=== PATIENT | male | born 1955 | race Caucasian/White ===

== ENCOUNTER → 2018-01-01 | Outpatient (CLI) | payer OTHER ==
[~2018-01-01] MED LIST: ACET500T68 PO; AMOX-362 PO; ATOR20TA22 PO; CEPH500T7 PO; CLIN-1 PO; CYCL10TA29 PO; DOCU-416 PO; DON PO; FENO43CA PO; HYDR-385 PO; HYDR-4309 PO; HYDR-6045 RC; IBUP800T37 PO; KET10 PO; LISI-349 PO; LOP2 PO; LOR5 PO; LOR5/325 PO; NO ROUTINE MEDS; OLME1TAB57 PO; PEN250 PO; PENI-22 PO; PENI-24 PO; PER PO; PRAV20TA65 PO; PREVPACPT PO; PROM-110 PO; SUC1 PO
[2018-01-01 16:01] LABS: PLATELET COUNT, AUTOMATED 203 K/uL (150-450)
[2018-01-01 16:11] LABS: LDL CHOLESTEROL 24 mg/dl
== END ==
LOC: LAB 15:39
PROVIDERS: ATTEND Emergency Medicine
DX: I10 Essential (primary) hypertension (principal)
CPT/HCPCS: 36415; 82040; 82247; 82306; 82310; 82374; 82435; 82465; 82565; 82947; 83718; 84075; 84132; 84155; 84295; 84443; 84450; 84460; 84478; 84520; 85025

== ENCOUNTER → 2018-01-08 | Outpatient (CLI) | payer OTHER | LOC: RESP 01:40 | PROVIDERS: ATTEND Emergency Medicine | DX: I10 Essential (primary) hypertension (principal) | CPT/HCPCS: 94060; 94726; 94729 ==

== ENCOUNTER → 2018-02-19 | Outpatient (CLI) | payer OTHER ==
[~2018-02-19] MED LIST changes: +CHOL500016 PO; +TIO18R INH
== END ==
LOC: RESP 04:09
PROVIDERS: ATTEND Emergency Medicine
DX: G47.33 Obstructive sleep apnea (adult) (pediatric) (principal)

== ENCOUNTER → 2018-04-16 | Outpatient (CLI) | payer OTHER ==
[~2018-04-16] MED LIST changes: +CHOL200074 PO
== END ==
LOC: LAB 16:26
PROVIDERS: ATTEND Emergency Medicine
DX: E55.9 Vitamin D deficiency, unspecified (principal)
CPT/HCPCS: 36415; 82306

== ENCOUNTER → 2018-05-31 | Outpatient (CLI) | payer OTHER ==
[~2018-05-31] MED LIST changes: +ALBU8.5H IH; +IPRA3AMP10 IH; +METH4TAB66 PO; +PENI1200 IM
== END ==
LOC: LAB 08:20
PROVIDERS: ATTEND Emergency Medicine
DX: J98.4 Other disorders of lung (principal)
CPT/HCPCS: 36415; 83880

== ENCOUNTER → 2018-06-06 | Outpatient (CLI) | payer OTHER ==
--- NOTE | 2018-06-06 15:37 | RADIOLOGY IMAGING REPORT ---
FACILITY: [facility] - [place] PATIENT NAME: Mario Rausch : 1955 MR: [id number] V: [id number] EXAM DATE: ORDERING PHYSICIAN: ALIA ACOSTA TECHNOLOGIST: Location: [facility] [place] Patient: Mario Rausch : 1955 Visit/Account:[id number] Date of Sevice: 06/06/2018 WRIST LEFT 2 VIEW INDICATION: Pain COMPARISON: None available FINDINGS: Frontal and lateral views obtained. Irregularity and sclerosis within the scaphoid bone seen on frontal view. Punctate dense focus projecting over the potential second digit region soft tissues not well characte rized on this dedicated wrist radiograph series. Otherwise normal osseous structures, joint spaces and soft tissues. IMPRESSION: 1. Irregularity and sclerosis of the scaphoid bone may represent a subacute to chronic scaphoid frac ture. Recommend dedicated scaphoid radiograph for further characterization. 2. Punctate dense focus/potential foreign body projecting over the potential second digit region sof t tissues not well characterized on this dedicated wrist radiograph series. Report Dictated By: Ian Parekh MD at 06/06/2018 3:28 PM Report E-Signed By: Ian Parekh MD at 06/06/2018 3:32 PM WSN:[id number]
== END ==
LOC: RAD 14:29
PROVIDERS: ATTEND Emergency Medicine
DX: R93.7 Abnormal findings on diagnostic imaging of other parts of musculoskeletal system (principal)

== ENCOUNTER → 2018-06-07 | Outpatient (CLI) | payer OTHER ==
--- NOTE | 2018-06-07 13:53 | RADIOLOGY IMAGING REPORT ---
FACILITY: [facility] PATIENT NAME: Mario Rausch : 1955 MR: [id number] V: [id number] EXAM DATE: ORDERING PHYSICIAN: ALIA ACOSTA TECHNOLOGIST: [place] [facility] [place] Raus[place] : 1955 Visit/Account:[id number] Date of Sevice: 06/07/2018 Technique: WRIST LEFT MIN 3 VIEW HISTORY: Pain Comparison studies: Left wrist radiographs June 06, 2018 FINDINGS: A chronic appearing, ununited scaphoid fracture through the mid body is noted with sclerosi s of the distal fracture fragment. There is also radiocarpal joint space narrowing. Previously note d foreign body is not included on the [id number]. IMPRESSION: 1. Chronic appearing, ununited scaphoid fracture as described above. Report Dictated By: Mitul Tejada DO at 06/07/2018 1:35 PM Report E-Signed By: Mitul Tejada DO at 06/07/2018 1:50 PM WSN:[email or web address]
== END ==
LOC: RAD 12:57
PROVIDERS: ATTEND Emergency Medicine
DX: S62.015 Nondisplaced fracture of distal pole of navicular [scaphoid] bone of left wrist (principal)

== ENCOUNTER → 2018-06-26 | Outpatient (CLI) | payer OTHER ==
--- NOTE | 2018-06-26 10:33 | RADIOLOGY IMAGING REPORT ---
FACILITY: [facility] - [place] PATIENT NAME: Mario Rausch : 1955 MR: [id number] V: [id number] EXAM DATE: ORDERING PHYSICIAN: DYLON CUNNINGHAM TECHNOLOGIST: Location: [facility] - [place] Patient: Mario Rausch : 1955 Visit/Account:[id number] Date of Sevice: 06/26/2018 FOOT 3 VIEW LEFT History: Left foot pain. Comparison study: None. Findings: There is diffuse osteopenia but no fracture involving the metatarsals or phalanges. There has been prior ORIF of a distal left fibular fracture. There is enthesopathic change at the site of attachment of the Achilles tendon and plantar aponeurosi s upon the calcaneus. IMPRESSION: 1. Osteopenia without fracture. 2. Status post fibular surgery. 3. Enthesopathic changes as described above. Report Dictated By: Rich Aldana MD at 06/26/2018 10:26 AM Report E-Signed By: Rich Aldana MD at 06/26/2018 10:29 AM WSN:[email or web address]
== END ==
LOC: RAD 09:43
PROVIDERS: ATTEND Nurse Practitioner Primary Care
DX: M85.80 Other specified disorders of bone density and structure, unspecified site (principal); Z87.81 Personal history of (healed) traumatic fracture

== ENCOUNTER → 2018-06-28 | Outpatient (CLI) | payer OTHER ==
--- NOTE | 2018-06-28 12:21 | RADIOLOGY IMAGING REPORT ---
FACILITY: [facility] [place] PATIENT NAME: Mario Rausch : 1955 MR: [id number] V: [id number] EXAM DATE: ORDERING PHYSICIAN: ALIA ACOSTA TECHNOLOGIST: Location: [facility] - [place] Patient: Mario Rausch : 1955 Visit/Account:[id number] Date of Sevice: 06/28/2018 DEXA Scan Clinical history: Osteopenia. Comparison: None available. LUMBAR SPINE: The bone mineral density (BMD) measured from L1-L4 correlates with a Z-score -1.8 and a T-score of -1 .4 which is osteopenia as defined by the World Health Organization. The corresponding risk of fractu re in the lumbar spine is 2-3 times increased compared with a young adult reference population. HIP: Bone mineral density (BMD) measured in the Left total hip region correlates with a Z-score -0.2 and a T-score of -0.3 which is Normal as defined by the World Health Organization. The corresponding risk of fracture in the hip is Not increased compared with a young adult reference population. T score left femoral neck -0.6 Bone mineral density (BMD) measured in the Femoral Neck region measures 0.988 g/cm2. Impression: 1. Lumbar spine: Osteopenia. 2. Left Hip: Normal. 3. Femoral Neck: Bone Mineral Density is 0.988 g/cm2 The next DEXA scan of this patient should include the following sites: L1-L4 and the left hip. FRAX? WHO Fracture Risk Assessment Tool link: <http://www.shef.ac.uk/FRAX/tool.jsp?locationValue=9> PLEASE NOTE: 1) The World Health Organization defines low BMD as follows: T-score Normal > -1 Osteopenia < -1 and > -2.5 Osteoporosis < -2.5 without fractures Established osteoporosis < -2.5 with fractures 2) In general, you may wish to consider: Diagnosis Treatment Follow-up DEXA Normal BMD Prevention 2-3 years Osteopenia Prevention/therapy 1-2 years Osteoporosis Therapy Yearly 3) Fracture risk estimated from the T-score is more accurate for vertebral fractures (often spontane ous) than for hip fractures. Report Dictated By: Rosa Jeffrey MD at 06/28/2018 12:16 PM Report E-Signed By: Rosa Jeffrey MD at 06/28/2018 12:17 PM WSN:[email or web address]
== END ==
LOC: RAD 00:52
PROVIDERS: ATTEND Emergency Medicine
DX: M85.80 Other specified disorders of bone density and structure, unspecified site (principal)
CPT/HCPCS: 77080

== ENCOUNTER → 2018-07-12 | Outpatient (CLI) | payer OTHER ==
[~2018-07-12] MED LIST changes: +FLU60VIA41 IM
== END ==
LOC: LAB 08:03
PROVIDERS: ATTEND Emergency Medicine
DX: M85.80 Other specified disorders of bone density and structure, unspecified site (principal)
CPT/HCPCS: 36415; 82310; 83970; 84402; 84403

== ENCOUNTER 2018-08-22 08:15 | Outpatient (RCR) | payer OTHER ==
--- NOTE | 2018-06-08 17:35 | PT INITIAL EVALUATION ---
MEDICAL DIAGNOSIS: Bilateral Shoulder Pain, Right Knee Andres TREATMENT DIAGNOSIS: Neck pain with Radiating, Right Patellofemoral Syndrome, LE Weakness, DATE OF ONSET: 06/08/18 SUBJECTIVE: Mario is a 63 year-old male presenting to physical therapy following recent onset of B shoulder pain as well as with a chronic history of R knee pain. Pt reports that the shoulder pain started more than a week ago without any cause. Pain shoots down both arms and is currently located to the level of the mid upper arm rated as a 2/10 in intensity. Pain is increased with shoulder movement and with sleeping reaching up to a 8-9/10 at worst shooting down into the fingers and wrist occasionally leaving fingers numb. R knee pain has been present since arthroscopic surgery in 2014 and is a general ache that pt reports has "never been the same" since the surgery. Pt reports that pain is currently located just above the knee in the quadriceps region rated as 3-4/10. Pain increases to 10/10 at worst after a long day of standing or walking at the end of a shift of work. 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 REHAB PROBLEM LIST: Increased Pain Decreased ROM Decreased Strength Decreased Endurance Decreased Function Decreased ADL's Decreased Mobility PREVIOUS MEDICAL HISTORY: See EMR OCCUPATION: Cook at OBJECTIVE: Posture: Posture significant for forward head with increased flexion in all movements. ROM: Cervical ROM: Flexion: full no pain, ext: minimally restricted with lateral neck pain L>R, L SB: 35 degrees with L side pn, R SB: 40 degrees with R side pn, B rotation: 60 degrees with pn on L with L rot. Strength: LE MMT: Hip: Flexion: B 4/5 with pn with R, Ext: B 4/5, add: R 4/5 lateral knee pain, L 5/5, abd: B 4/5. Knee: Flex: R 4/5, L 4+/5, ext: R 4-/5, L 5/5. Medial quad activation 6/10 repetitions Special Tests: All ligamentous testing of the knee (-) except slight ACL laxity on R. Mobility: Brian Cervical Screen: Repeated motion: flex: pain to B wrists and R thumb, ext: pain centralized to shoulders only and then to R neck only and L shoulder, retraction: no change ASSESSMENT: Mario shows signs and symptoms consistent with right patellofemoral syndrome secondary to LE weakness as well as cervical dysfunction with B UE radiating pain. Physical therapy is indicated for this patient to address the above listed deficits to improve pt function with ADL's and occupational activities. Short Term Goals In 3 weeks pt will centralize neck pain to the cervical region only without radiation for increased UE function with ADL's. In 6 weeks pt will have no neck pain or arm pain for improved function with ADL's. In 6 weeks pt will increase R knee extension to 4+/5 for improved function with ADL's. In 6 weeks pt will have increased medial quad activation to 10/10 contractions with quad sets for improved patellar tracking for increased function with ADL's. Patient's Goals Decrease shoulder and arm pain, decrease L knee pain PLAN: Patient to be seen for Manual Therapy/STM/MET Strengthening/condition Ice/Heat Range of Motion Spinal Stabilization Ultrasound Stretching Iontophoresis Neuromuscular Re-ed Closed Chain Program Electrical Stim Posture/Body mechanics Gait Trg/Balance Trg Biofeedback Home Exercise Program Mech./Manual Traction Therapeutic Activities 2-3x/Week for 6 Weeks If you have any questions, comments, or concerns about this report or plan, please contact me at . Thank you, Tamara Celis, PT, DPT, CLT YOAN
--- NOTE | 2018-07-02 16:18 | PT PLAN OF CARE ---
Physician: Cielo Joe MD Patient is being seen: 2-3x/Week Therapist: Tamara Celis, PT, DPT, CLT Medical Diagnosis: Bilateral Shoulder Pain, Right Knee Andres Treatment Diagnosis: Neck pain with Radiating, Right Patellofemoral Syndrome, LE Weakness, Date of Onset: 06/08/18 Date of Initial Evaluation: 06/08/18 Date patient was last seen: 07/02/18 Number of treatments: 10 Number of cancellations/No shows: 0 INTERVENTIONS: Manual Therapy/STM/MET Strengthening/condition Ice/Heat Range of Motion Spinal Stabilization Ultrasound Stretching Iontophoresis Neuromuscular Re-ed Closed Chain Program Electrical Stim Posture/Body mechanics Gait Trg/Balance Trg Biofeedback Home Exercise Program Mech./Manual Traction Therapeutic Activities GOALS: In 3 weeks pt will centralize neck pain to the cervical region only without radiation for increased UE function with ADL's. MET In 6 weeks pt will have no neck pain or arm pain for improved function with ADL's. MET In 6 weeks pt will increase R knee extension to 4+/5 for improved function with ADL's. In Progress In 6 weeks pt will have increased medial quad activation to 10/10 contractions with quad sets for improved patellar tracking for increased function with ADL's. MET PATIENT'S GOAL: Decrease shoulder and arm pain, decrease L knee pain Status of Patient's Goals: 3/4 MET Patient Compliance: Good Prognosis: Good Reasons for continuing therapy: Mario shows good progress with LE strengthening and abolishment of B shoulder pain from radiation from the neck. Pt continues to show slight scapular elevation with exercises and requires verbal cuing for postural adjustments. Pt knee pain is significantly reduced with symptoms only coming on now at the end of a shift following prolonged standing. Pt recently developed L metatarsalgia on the 5th met which shows improvements with treatment but has created an abnormal gait pattern resulting in increased R LE dependence and occasional fatigue. Further PT to continue with gains in LE strength and stability for occupational demands as well as recovery from recent injury, and maintaining cervical and scapular posture. Posture: Slight forward head posture remaining ROM: Cervical ROM: Flexion: full no pain, ext: minimally restricted no pain, L SB: 35 degrees, R SB: 40 degrees, B rotation: 60 degrees. Strength: LE MMT: Hip: Flexion: B 4/5 with pn with R, Ext: B 4+/5, add: R 5/5, L 5/5, abd: B 4+/5. Knee: Flex: B 5/5, ext: R 4/5, L 5/5. Medial quad activation 10/10 repetitions Special Tests: All ligamentous testing of the knee (-) except slight ACL laxity on R. Mobility: Brian Cervical Screen: Repeated motion: flex: pain to B wrists and R thumb, ext: pain centralized to shoulders only and then to R neck only and L shoulder, retraction: no change If you have any questions or concerns, please feel free to contact me at [phone]. Thank you, Tamara Celis, PT, DPT, CLT MTDD
--- NOTE | 2018-08-01 09:20 | PT PLAN OF CARE ---
Physician: Cielo Joe MD Patient is being seen: 2-3x/Week Therapist: Tamara Celis, PT, DPT, CLT Medical Diagnosis: Bilateral Shoulder Pain, Right Knee Andres Treatment Diagnosis: Neck pain with Radiating, Right Patellofemoral Syndrome, LE Weakness, Date of Onset: 06/08/18 Date of Initial Evaluation: 06/08/18 Date patient was last seen: 08/01/18 Number of treatments: 20 Number of cancellations/No shows: 0 INTERVENTIONS: Manual Therapy/STM/MET Strengthening/condition Ice/Heat Range of Motion Spinal Stabilization Ultrasound Stretching Iontophoresis Neuromuscular Re-ed Closed Chain Program Electrical Stim Posture/Body mechanics Gait Trg/Balance Trg Biofeedback Home Exercise Program Mech./Manual Traction Therapeutic Activities GOALS: In 3 weeks pt will centralize neck pain to the cervical region only without radiation for increased UE function with ADL's. MET In 6 weeks pt will have no neck pain or arm pain for improved function with ADL's. MET In 6 weeks pt will increase R knee extension to 4+/5 for improved function with ADL's. In Progress In 6 weeks pt will have increased medial quad activation to 10/10 contractions with quad sets for improved patellar tracking for increased function with ADL's. MET PATIENT'S GOAL: Decrease shoulder and arm pain, decrease L knee pain Status of Patient's Goals: 3/4 MET Patient Compliance: Good Prognosis: Good Reasons for continuing therapy: Mario continues to show good progress with cervical mobility and function with pain completely eliminated. Pt shows progress with LE strengthening with improved hip and knee mechanics. Progress was temporarily slowed by onset of ankle injury, but now bilateral ankles, knees and hips show improving strength and stability. Further PT to continue with knee strength and posture with ADL's such as stair ambulation for progress towards functional goals. Posture: Slight forward head posture remaining ROM: Cervical ROM: Full in all motions without pain. Strength: LE MMT: Hip: Flexion: R 4+/5, L 4/5, Ext: B 4+/5, add: R 5/5, L 5/5, abd: B 5/5. Knee: Flex: B 5/5, ext: R 4/5, L 5/5. Medial quad activation 10/10 repetitions Special Tests: All ligamentous testing of the knee (-) except slight ACL laxity on R. If you have any questions or concerns, please feel free to contact me at [phone]. Thank you, Tamara Celis, PT, DPT, CLT BARROND
[~2018-08-22 08:15] MED LIST changes: -HYDR-4309 PO; +HYDR-653 PO
--- NOTE | 2018-08-22 09:12 | PT PLAN OF CARE ---
Physician: Cielo Joe MD Patient is being seen: 2x/Week Therapist: Tamara Celis, PT, DPT, CLT Medical Diagnosis: Bilateral Shoulder Pain, Right Knee Andres Treatment Diagnosis: Neck pain with Radiating, Right Patellofemoral Syndrome, LE Weakness, Date of Onset: 06/08/18 Date of Initial Evaluation: 06/08/18 Date patient was last seen: 08/22/18 Number of treatments: 29 Number of cancellations/No shows: 0 INTERVENTIONS: Manual Therapy/STM/MET Strengthening/condition Ice/Heat Range of Motion Spinal Stabilization Ultrasound Stretching Iontophoresis Neuromuscular Re-ed Closed Chain Program Electrical Stim Posture/Body mechanics Gait Trg/Balance Trg Biofeedback Home Exercise Program Mech./Manual Traction Therapeutic Activities GOALS: In 3 weeks pt will centralize neck pain to the cervical region only without radiation for increased UE function with ADL's. MET In 6 weeks pt will have no neck pain or arm pain for improved function with ADL's. MET In 6 weeks pt will increase R knee extension to 4+/5 for improved function with ADL's. MET In 6 weeks pt will have increased medial quad activation to 10/10 contractions with quad sets for improved patellar tracking for increased function with ADL's. MET PATIENT'S GOAL: Decrease shoulder and arm pain, decrease L knee pain Status of Patient's Goals: 4/4 MET Patient Compliance: Good Prognosis: Good Reasons for discharge from therapy: Mario is to discharge from physical therapy at this time secondary to completion of 4/4 functional goals. Pt shows great progress with LE strengthening and endurance with decreased fatigue throughout the day with ADL's and occupational activities. Pt shows full resolution of all cervical pain with good compliance with HEP. Upon discharge pt was issued a home program to continue with gains in strength and endurance to maintain pain status. If any further symptoms arise pt is to seek further treatment. Posture: Slight forward head posture remaining ROM: Cervical ROM: Full in all motions without pain. Strength: LE MMT: Hip: Flexion: R 5/5, L 5/5, Ext: B 5/5, add: R 5/5, L 5/5, abd: B 5/5. Knee: Flex: B 5/5, ext: R 5/5, L 5/5, Ankle: PF: B 4/5, DF: B 5/5 Medial quad activation 10/10 repetitions If you have any questions or concerns, please feel free to contact me at [phone]. Thank you, Tamara Celis, PT, DPT, CLT YOAN
== END 2018-08-22 16:11 | disposition home or self-care (01) ==
LOC: PT 08:15
PROVIDERS: ATTEND Emergency Medicine
DX: M25.512 Pain in left shoulder (principal); M25.511 Pain in right shoulder; M25.561 Pain in right knee; M54.2 Cervicalgia; M62.81 Muscle weakness (generalized); M22.2X1 Patellofemoral disorders, right knee
CPT/HCPCS: 97162

== ENCOUNTER → 2018-11-05 | Outpatient (CLI) | payer OTHER ==
[~2018-11-05] MED LIST changes: +GADOBENATE 529MG/1ML 15ML VIAL IVP ONE
--- NOTE | 2018-11-05 10:27 | RADIOLOGY IMAGING REPORT ---
[facility] PATIENT NAME: Mario Rausch : 1955 MR: [id number] V: [id number] EXAM DATE: ORDERING PHYSICIAN: ALIA ACOSTA TECHNOLOGIST: Location: [facility] [place] Patient: Mario Rausch : 1955 Visit/Account:[id number] Date of Sevice: 11/05/2018 Study: XR ORBITS Indication: MRI screening Comparison study: None Findings: A single view of the orbits demonstrates no evidence of metallic foreign body. No significant bony abnormality is identified. IMPRESSION: No evidence of metallic foreign body overlying the orbits. Report Dictated By: Ford Little at 11/05/2018 10:21 AM Report E-Signed By: Ford Little at 11/05/2018 10:21 AM WSN:[id number]
--- NOTE | 2018-11-05 11:36 | RADIOLOGY IMAGING REPORT ---
FACILITY: [facility] - [place] PATIENT NAME: Mario Rausch : 1955 MR: [id number] V: [id number] EXAM DATE: ORDERING PHYSICIAN: ALIA ACOSTA TECHNOLOGIST: Location: [facility] Patient: Mario Rausch : 1955 Visit/Account:[id number] Date of Sevice: 11/05/2018 MR BRAIN/BRAIN STEM W/ & W/O CON Comparisons: Head CT scan dated February 20, 2017 Additional pertinent history: Follow-up arachnoid cyst TECHNIQUE: Multiplanar, multisequence brain MRI was performed with and without gadolinium contrast. CONTRAST: 15 ml of MultiHance. FINDINGS: Sagittal midline structures and craniocervical junction: Negative. Midline shift: None. Ventricles: Negative. Brain parenchyma: Diffusion weighted imaging: Negative. Gradient sequence: Negative. T2 weighted FLAIR images: Negative. Extra-axial spaces: Continued well-circumscribed uniform CSF signal intensity lesion along the medial aspects of both cerebellar hemispheres again consistent with an underlying arachnoid cyst. This find ing is stable from previous head CT. Dural venous sinuses and major arterial flow voids: Negative. Intracranial enhancement: Negative.. Mastoid air cells and paranasal sinuses: Negative. Surrounding soft tissues and orbits: Negative. Impression: 1. Continued findings of an arachnoid cyst overlying the posterior medial aspects of both cerebellar hemispheres. 2. No acute intracranial pathology. Report Dictated By: Manas Rivera MD at 11/05/2018 11:25 AM Report E-Signed By: Manas Rivera MD at 11/05/2018 11:30 AM WSN:[email or web address]
== END ==
LOC: MRI 01:48
PROVIDERS: ATTEND Emergency Medicine
DX: Z01.818 Encounter for other preprocedural examination (principal); G93.0 Cerebral cysts
CPT/HCPCS: 70030; 70553; A9577

== ENCOUNTER → 2019-04-08 | Outpatient (CLI) | payer OTHER ==
[~2019-04-08] MED LIST changes: -GADOBENATE 529MG/1ML 15ML VIAL IVP ONE
[2019-04-08 10:58] LABS: PLATELET COUNT, AUTOMATED 192 K/uL (150-450)
[2019-04-08 11:18] LABS: LDL CHOLESTEROL 43 mg/dl
== END ==
LOC: LAB 10:15
PROVIDERS: ATTEND Emergency Medicine
DX: G93.0 Cerebral cysts (principal); I10 Essential (primary) hypertension; E78.5 Hyperlipidemia, unspecified; G47.30 Sleep apnea, unspecified; E55.9 Vitamin D deficiency, unspecified; M85.80 Other specified disorders of bone density and structure, unspecified site
CPT/HCPCS: 36415; 82040; 82247; 82306; 82310; 82374; 82435; 82465; 82565; 82607; 82947; 83718; 84075; 84132; 84155; 84295; 84443; 84450; 84460; 84478; 84520; 85025

== ENCOUNTER → 2019-05-01 | Outpatient (CLI) | payer OTHER ==
[~2019-05-01] MED LIST changes: +CYAN500T54 PO
--- NOTE | 2019-05-01 15:56 | EKG ---
FACILITY: [facility] - [place] PATIENT NAME: ARLIN QUINONES : [id number] MR: [id number] V: [id number] EXAM DATE: ORDERING PHYSICIAN: SARTHAK PLEITEZ TECHNOLOGIST: Test Reason : Pre-op Blood Pressure : / mmHG Vent. Rate : 067 BPM Atrial Rate : 067 BPM P-R Int : 162 ms QRS Dur : 112 ms QT Int : 390 ms P-R-T Axes : 041 067 039 degrees QTc Int : 412 ms Sinus rhythm Nonspecific interventricular conduction delay Nonspecific T wave abnormality Abnormal ECG When compared with ECG of 04-JUL-2016 11:22, No significant change was found Confirmed by NIKITA FORBES ([id number]) on 05/01/2019 5:09:45 PM Referred By: Confirmed By:NIKITA FORBES
--- NOTE | 2019-05-01 15:58 | RADIOLOGY IMAGING REPORT ---
FACILITY: [facility] - [place] PATIENT NAME: Mario Rausch : 1955 MR: [id number] V: [id number] EXAM DATE: ORDERING PHYSICIAN: SARTHAK PLEITEZ TECHNOLOGIST: Location: [facility] - [place] Patient: Mario Rausch : 1955 Visit/Account:[id number] Date of Sevice: 05/01/2019 Exam type: CHEST PA LAT History: COPD, preop clearance Comparison: February 20, 2017. Findings: There is mild central peribronchial thickening noted bilaterally. No evidence of acute appearing inf iltrates, pleural effusions or pulmonary edema. The cardiac silhouette is normal in size. There are moderate spondylotic changes of the thoracic spine IMPRESSION: 1. Mild chronic peribronchial thickening although no evidence of acute pulmonary consolidation Report Dictated By: Rosa Jeffrey MD at 05/01/2019 3:49 PM Report E-Signed By: Rosa Jeffrey MD at 05/01/2019 3:50 PM WSN:[email or web address]
== END ==
LOC: LAB 15:20
PROVIDERS: ATTEND Emergency Medicine
DX: J44.9 Chronic obstructive pulmonary disease, unspecified (principal); R91.8 Other nonspecific abnormal finding of lung field
CPT/HCPCS: 71046; 93005

== ENCOUNTER 2019-05-10 00:25 | Day surgery (SDC) | payer OTHER ==
[~2019-05-10] VITALS: Ht 177.8 cm; Wt 109.3 kg
[2019-05-10 09:20] VITALS: BP 136/91
[2019-05-10] MEDS ORDERED: NORMOSOL R SOLN(*) 1000 ML BAG 1,000 ML IV PRN (09:45)
[2019-05-10] MEDS ORDERED: LIDOCAINE/SOD BICARB 8.4% SYR ID ONE (09:45)
[2019-05-10] MEDS ORDERED: PROPOFOL EMUL(*) 10MG/ML 20 ML 40 ML ONE (10:15)
[2019-05-10] MEDS ORDERED: LIDOCAINE MPF 1% 5 ML VIAL ONE (10:15)
[2019-05-10 10:45] VITALS: BP 127/80
[2019-05-10 11:00] VITALS: BP 130/90
--- NOTE | 2019-05-10 11:02 | Short(Outpt) Discharge Summary ---
Discharge Summary Reason for Hosp/Final Diag: (1) Positive colorectal cancer screening using Cologuard test Hospital Course & Plan: pt presented for colonoscopy. he tolerated the procedure well and will be discharged home when criteria met. Departure Discharge to: Home Discharge Instructions Home Meds Active Scripts Cyanocobalamin (Vitamin B-12) (B-12) 500 Mcg Tablet, 500 MCG PO DAILY, #90 TAB 3 Refills Prov:ALIA ACOSTA MD 04/25/19 Albuterol Sulfate 90 Mcg/Act (PROAIR HFA 90 MCG/ACT) 8.5 Gm Hfa.aer.ad, 2 PUFF IH Q4-6H, #1 INHALER 3 Refills Prov:ALIA ACOSTA MD 04/25/19 Tiotropium [place] (SPIRIVA) 18 Mcg/Cap Inh, 18 MCG INH DAILY, #3 INH 3 Refills Prov:ALIA ACOSTA MD 10/26/18 Atorvastatin Calcium (LIPITOR) 20 Mg Tablet, 1 TAB PO QDAY, #90 TAB 3 Refills Prov:ALIA ACOSTA MD 10/26/18 Olmesartan/Hydrochlorothiazide (BENICAR HCT 20-12.5 MG TABLET) 1 Each Tablet, 1 EACH PO QDAY, #90 TAB 3 Refills Prov:ALIA ACOSTA MD 10/26/18 Cholecalciferol (Vitamin D3) (VITAMIN D-3) 2,000 Unit Capsule, 2000 UNIT PO DAILY, #90 CAPSULE 3 Refills Prov:ALIA ACOSTA MD 04/17/18 Reported Medications Acetaminophen (TYLENOL EXTRA STRENGTH) 500 Mg Tablet, 1000 MG PO PRN PRN for PAIN 01/28/15 Diet: Regular Activity: As Tolerated Special Instructions: we will call you in 10 days with results SARTHAK PLEITEZ May 10, 2019 11:02
[2019-05-10 11:25] VITALS: BP 150/86
[2019-05-10 11:45] VITALS: BP 136/98
[2019-05-10 11:47] VITALS: BP 137/89
== END 2019-05-10 12:06 | disposition home or self-care (01) ==
LOC: OR 00:25
PROVIDERS: ATTEND Surgery
DX: D12.2 Benign neoplasm of ascending colon (principal); K63.5 Polyp of colon; K57.30 Diverticulosis of large intestine without perforation or abscess without bleeding
CPT/HCPCS: 00811; 45385; 88305; J2001; J2704

== ENCOUNTER 2019-05-11 00:31 | Observation (INO) | payer OTHER ==
[2019-05-11] VITALS (18 sets, daily range): BP systolic 83–119; BP diastolic 52–89; Ht 177.8 cm; Wt 110.3 kg
[~2019-05-11] VITALS: Ht 177.8 cm; Wt 110.3 kg
--- NOTE | 2019-05-11 00:33 | ER Report ---
History and Physical Time Seen By MD: 00:29 HPI/ROS CHIEF COMPLAINT: Rectal bleeding HISTORY OF PRESENT ILLNESS: 64-year-old male with a history of positive Hemoccult stools recently had colonoscopy yesterday with biopsies. Patient states she's had several episodes of rectal bleeding. He is dizzy and short of breath. He is diaphoretic. He slowly pale appearing on arrival to the ER. He states he's been feeling faint. Patient states he takes no blood thinners. REVIEW OF SYSTEMS: Respiratory: No cough, no dyspnea. Cardiovascular: No chest pain, no palpitations. Gastrointestinal: As above Musculoskeletal: No back pain. Allergies: Coded Allergies: No Known Allergies (Verified Allergy, Mild, 05/11/19) Home Meds Active Scripts Cyanocobalamin (Vitamin B-12) (B-12) 500 Mcg Tablet, 500 MCG PO DAILY, #90 TAB 3 Refills Prov:ALIA ACOSTA MD 04/25/19 Albuterol Sulfate 90 Mcg/Act (PROAIR HFA 90 MCG/ACT) 8.5 Gm Hfa.aer.ad, 2 PUFF IH Q4-6H, #1 INHALER 3 Refills Prov:ALIA ACOSTA MD 04/25/19 Tiotropium [place] (SPIRIVA) 18 Mcg/Cap Inh, 18 MCG INH DAILY, #3 INH 3 Refills Prov:ALIA ACOSTA MD 10/26/18 Atorvastatin Calcium (LIPITOR) 20 Mg Tablet, 1 TAB PO QDAY, #90 TAB 3 Refills Prov:ALIA ACOSTA MD 10/26/18 Olmesartan/Hydrochlorothiazide (BENICAR HCT 20-12.5 MG TABLET) 1 Each Tablet, 1 EACH PO QDAY, #90 TAB 3 Refills Prov:ALIA ACOSTA MD 10/26/18 Cholecalciferol (Vitamin D3) (VITAMIN D-3) 2,000 Unit Capsule, 2000 UNIT PO DAILY, #90 CAPSULE 3 Refills Prov:ALIA ACOSTA MD 04/17/18 Reported Medications Acetaminophen (TYLENOL EXTRA STRENGTH) 500 Mg Tablet, 1000 MG PO PRN PRN for PAIN 01/28/15 Past Medical/Surgical History Past Medical History Neurologic: Reports hx of: other neurologic history (Left posterior arachnoid cyst) Cardiovascular: Reports hx of: hyperlipidemia hypertension Respiratory: Reports hx of: COPD sleep apnea (mild) Gastrointestinal: Reports hx of: peptic ulcer disease Musculoskeletal: Reports hx of: osteopenia Endocrine: Reports hx of: obesity Past Surgical History Gastrointestinal: Reports hx of: appendectomy (1978) cholecystectomy (2004) Musculoskeletal: Reports hx of: arthroscopy (R knee 2014) other musculosk surgery (ORIF, left distal tibular fracture.) Integumentary: Reports hx of: skin cancer removal (lower right lp 2015) Reviewed Nurses Notes: Yes Old Medical Records Reviewed: Yes Hx Smoking: Yes Smoking Status: Current: Every Day Smoker Exposure to Second Hand Smoke?: Yes Hx Substance Use Disorder: No Hx Alcohol Use: No Constitutional Vital Sign - Last 24 Hours 05/11/19 05/11/19 05/11/19 05/11/19 00:32 00:35 01:00 01:01 Temp 97.7 Pulse 80 72 Resp 26 B/P (MAP) 100/55 (70) 100/55 91/68 (76) Pulse Ox 88 91 O2 Delivery Room Air 05/11/19 05/11/19 05/11/19 05/11/19 01:06 01:15 01:21 01:30 Pulse 72 Resp 15 B/P (MAP) 93/65 (74) 90/63 (72) Pulse Ox 94 93 05/11/19 05/11/19 01:36 01:45 Pulse 72 Resp 9 B/P (MAP) 94/64 (74) Pulse Ox 96 Intake and Output 05/10/19 05/10/19 05/11/19 15:03 23:03 07:03 Intake Total 1000 ml Balance 1000 ml Physical Exam General Appearance: The patient is alert, has no immediate need for airway protection and no current signs of toxicity. Vital signs stable, borderline hypertension, pulse ox 88%, slightly pale appearing, skin cool and clammy HEENT: Pupils equal and round no injection. Oropharynx no redness or exudate, mucous members are moist Respiratory: Chest is non tender, lungs are clear to auscultation. Cardiac: regular rate and rhythm Gastrointestinal: Abdomen is soft and non tender, no masses, bowel sounds normal. Musculoskeletal: Neck: Neck is supple and non tender. Extremities have full range of motion and are non tender. Skin: No rashes or lesions. DIFFERENTIAL DIAGNOSIS: After history and physical exam differential diagnosis was considered for lower GI bleeding including but not limited to diverticulosis, tumor, AVM, hemorrhoid and anal fissure. Medical Decision Making Data Points Result Diagram: 05/11/19 1232 05/11/19 0043 Laboratory Hematology Test 05/11/19 00:43 White Blood Count 10.4 k/uL (4.5-11.0) Red Blood Count 4.39 M/uL (4.00-5.60) Mean Corpuscular Volume 93.2 fL (80.0-96.0) Mean Corpuscular Hemoglobin 31.9 pg (26.0-33.0) Mean Corpuscular Hemoglobin Concent 34.2 g/dL (32.0-36.0) Red Cell Distribution Width 13.3 % (11.5-14.5) Platelet Count 247 K/uL (150-450) Mean Platelet Volume 8.8 fL (7.2-11.1) Neutrophils (%) (Auto) 62.4 % (39.4-72.5) Lymphocytes (%) (Auto) 27.3 % (17.6-49.6) Monocytes (%) (Auto) 8.7 % (4.1-12.4) Eosinophils (%) (Auto) 0.9 % (0.4-6.7) Basophils (%) (Auto) 0.7 % (0.3-1.4) Nucleated RBC Relative Count (auto) 0.0 /100WBC Neutrophils # (Auto) 6.5 K/uL (2.0-7.4) Lymphocytes # (Auto) 2.9 K/uL (1.3-3.6) Monocytes # (Auto) 0.9 K/uL (0.3-1.0) Eosinophils # (Auto) 0.1 K/uL (0.0-0.5) Basophils # (Auto) 0.1 K/uL (0.0-0.1) Nucleated RBC Absolute Count (auto) 0.00 K/uL Chemistry Test 05/11/19 00:43 Sodium Level 137 mmol/L (137-145) Potassium Level 4.0 mmol/L (3.5-5.0) Chloride Level 105 mmol/L (98-107) Carbon Dioxide Level 22 mmol/L (22-30) Blood Urea Nitrogen 19 mg/dl (9-21) Creatinine 1.10 mg/dl (0.66-1.25) Glomerular Filtration Rate Calc > 60.0 Random Glucose 139 mg/dl (75-110) Lactate 1.9 mmol/L (0.7-2.1) Calcium Level 8.7 mg/dl (8.4-10.2) Total Bilirubin 0.4 mg/dl (0.2-1.3) Aspartate Amino Transf (AST/SGOT) 31 U/L (0-35) Alanine Aminotransferase (ALT/SGPT) 53 U/L (0-56) Alkaline Phosphatase 70 U/L (0-126) Total Protein 6.0 g/dl (6.3-8.2) Albumin 3.5 g/dl (3.5-5.0) Amylase Level 40 U/L (0-110) Lipase 95 U/L (23-300) Coagulation Test 05/11/19 00:43 Prothrombin Time 13.6 seconds (12.0-14.4) Prothromb Time International Ratio 1.04 Activated Partial Thromboplast Time 29 seconds (23-35) ED Course/Re-evaluation Clinical Indication for ER IV: Hydration, IV Access ED Course Patient was admitted to an examination room. H&P was done. The differential diagnoses was considered. Patient with acute rectal bleeding after colonoscopy and biopsy today. He likely has bleeding from the site of polyps that were removed. Patient's H&H has dropped from 18 and 49 down to 14 and 41. 05/11/2019 1:16:10 am case discussed with Dr. Saxena, general surgery on-call, who accepts the patient for admission. Brief holding orders were written. A repeat H&H will be done in 4 hours. Decision to Disposition Date: May 11, 2019 Decision to Disposition Time: 00:53 Critical Care Time I spent a total of 60 minutes of critical care time in obtaining history, performing a physical exam, bedside monitoring of interventions, collecting and interpreting tests and discussion with consultants but not including time spent performing procedures. Depart Departure Latest Vital Signs Vital Signs Date Time Temp Pulse Resp B/P (MAP) Pulse Ox O2 Delivery O2 Flow Rate FiO2 05/11/19 01:45 94/64 (74) 05/11/19 01:36 72 9 96 05/11/19 00:35 97.7 Room Air Impression: Primary Impression: Lower GI bleed Additional Impression: Hypotension due to blood loss Condition: Improved Disposition: Admitted from ER Referrals: ALIA ACOSTA MD (PCP) Problem Qualifiers CHELSEY RICHARDSON DO May 11, 2019 00:33
[2019-05-11] MEDS ORDERED: NS(*) 0.9% 1000 ML BAG 1,000 ML IV ONE (00:36)
[2019-05-11 01:02] LABS: PLATELET COUNT, AUTOMATED 247 K/uL (150-450)
[2019-05-11 01:56] LABS: INR 1.04
[2019-05-11] MEDS: LR(*) 1000 ML BAG 1,000 ML IV PRN ×2 (02:10→06:05)
[2019-05-11] MEDS ORDERED: ONDANSETRON 4 MG/2 ML VIAL IVP PRN (02:10)
[2019-05-11] MEDS ORDERED: LR(*) 1000 ML BAG 1,000 ML ONE (02:14)
[2019-05-11] MEDS: PANTOPRAZOLE SOD 40 MG IV VIAL IVP SCH ×2 (03:04→15:41)
[2019-05-11] MEDS ORDERED: ACETAMINOPHEN(*)1000 MG/100 ML 100 ML IVPB PRN (05:40)
[2019-05-11] MEDS ORDERED: LR(*) 1000 ML BAG 1,000 ML IV PRN (06:28)
--- NOTE | 2019-05-11 07:56 | Gen Surgery History & Physical ---
History of Present Illness Chief Complaint blood per rectum History of Present Illness 64 yo m s/p colonoscopy yesterday and removal of large polyp with snare. pt has episodes of blood per rectum between about 10p and midnight last night. blood was getting darker with each episode. no blood per rectum since about midnight. no pain. History Home Meds Active Scripts Cyanocobalamin (Vitamin B-12) (B-12) 500 Mcg Tablet, 500 MCG PO DAILY, #90 TAB 3 Refills Prov:ALIA ACOSTA MD 04/25/19 Albuterol Sulfate 90 Mcg/Act (PROAIR HFA 90 MCG/ACT) 8.5 Gm Hfa.aer.ad, 2 PUFF IH Q4-6H, #1 INHALER 3 Refills Prov:ALIA ACOSTA MD 04/25/19 Tiotropium [place] (SPIRIVA) 18 Mcg/Cap Inh, 18 MCG INH DAILY, #3 INH 3 Refills Prov:ALIA ACOSTA MD 10/26/18 Atorvastatin Calcium (LIPITOR) 20 Mg Tablet, 1 TAB PO QDAY, #90 TAB 3 Refills Prov:ALIA ACOSTA MD 10/26/18 Olmesartan/Hydrochlorothiazide (BENICAR HCT 20-12.5 MG TABLET) 1 Each Tablet, 1 EACH PO QDAY, #90 TAB 3 Refills Prov:ALIA ACOSTA MD 10/26/18 Cholecalciferol (Vitamin D3) (VITAMIN D-3) 2,000 Unit Capsule, 2000 UNIT PO DAILY, #90 CAPSULE 3 Refills Prov:ALIA ACOSTA MD 04/17/18 Reported Medications Acetaminophen (TYLENOL EXTRA STRENGTH) 500 Mg Tablet, 1000 MG PO PRN PRN for PAIN 01/28/15 Allergies: Coded Allergies: No Known Allergies (Verified Allergy, Mild, 05/11/19) Patient History: FH: myocardial infarction FATHER, , Age:65 FH: seizures BROTHER OR SISTER BROTHER OR SISTER FH: throat cancer BROTHER OR SISTER BROTHER OR SISTER Review of Systems Constitutional: Other (per hpi) Exam General Appearance: Alert, Awake, No Acute Distress ENT: Moist Mucous Membranes Cardiovascular: Other (reg rate) Respiratory: No Respiratory Distress GI: Abd Soft and Non-Tender Psych: Appropriate Mood & Affect Medical Decision Making Data Points Result Diagram: 05/11/19 0447 05/11/19 0043 Assessment and Plan Problems: (1) Lower GI bleed Status: Acute Assessment & Plan: bleed s/p polypectomy. pt stable. hb stable considering ivf given. no blood per rectum since midnight. clears, serial exams/labs, if pt rebleeds then colonoscopy. Venous Thromboembolism Antithrombotics Is Pt On Any Antithrombotics?: No SARTHAK PLEITEZ May 11, 2019 07:56
[2019-05-11] MEDS ORDERED: PANTOPRAZOLE SOD 40 MG IV VIAL IVP SCH (09:00)
== END 2019-05-11 20:00 | disposition home or self-care (01) ==
LOC: ER 00:39 → INTOOBSV 01:45 → MED 01:45
PROVIDERS: ADMIT Surgery; ATTEND Surgery
DX: K92.2 Gastrointestinal hemorrhage, unspecified (principal); I95.89 Other hypotension
CPT/HCPCS: 36415; 82150; 83605; 83690; 85014; 85018; 85025; 85610; 85730; 86850; 86900; 86901; 86920; 96360; 99291; C9113; G0378; J0131; J7030; J7120; 82040; 82247; 82310; 82374; 82435; 82565; 82947; 84075; 84132; 84155; 84295; 84450; 84460; 84520